=== PATIENT | male | born 1955 | race Caucasian/White ===

== ENCOUNTER 2020-01-22 17:48 | Emergency (ER) | payer MEDICAID ==
[2020-01-22 18:00] VITALS: Ht 170.2 cm
[2020-01-22 20:01] LABS: CHLORIDE SERUM 98 mmol/L (98-107); GFR1 > 60 mL/min; POTASSIUM SERUM 3.6 mmol/L (3.5-5.1); SODIUM SERUM 135 mmol/L (136-145)
[2020-01-22 20:16] LABS: PLATELET COUNT 426 x10^3mcL (130-400); RED CELL DISTRIBUTION WIDTH 21.1 % (11.5-14.5)
[2020-01-22 20:21] LABS: ALKALINE PHOSPHATASE 108 U/L (46-116); ALT/SGPT 13 U/L (16-63); AST/SGOT 26 U/L (15-37); BAND NEUTROPHIL 4 % (0-10); BILIRUBIN TOTAL 0.4 mg/dL (0.20-1.00); CALCIUM 7.9 mg/dL (8.5-10.1); CARBON DIOXIDE 19.7 mmol/L (21-32); CREATININE SERUM 0.7 mg/dL (0.7-1.3); MONOCYTE 6 % (0-7); SEGMENTED NEUTROPHILS 52 % (37-75)
[2020-01-22 20:22] LABS: rbc morphology (normal/abnorm) ABNORMAL (NORMAL)
[2020-01-22 20:23] LABS: PLATELET MORPHOLOGY PLATELETS INCREASED
[2020-01-22 20:24] LABS: ALBUMIN 2.3 g/dL (3.4-5.0)
[2020-01-22 20:27] LABS: GLUCOSE SERUM 45 mg/dL (74-106)
[2020-01-22 23:55] LABS: UA SPECIFIC GRAVITY >=1.030 (1.005-1.035); urine erythrocyte 1+ (NEGATIVE)
[2020-01-23 00:02] LABS: microscopic required? YES
[2020-01-23 01:36] VITALS: BP 101/64
== END 2020-01-23 01:37 | disposition home or self-care (01) ==
LOC: ED 17:48
PROVIDERS: Emergency Medicine
DX: T45.1X5A Adverse effect of antineoplastic and immunosuppressive drugs, initial encounter (principal); D50.9 Iron deficiency anemia, unspecified; Y92.89 Other specified places as the place of occurrence of the external cause
CPT/HCPCS: 82962; 83880; J2405; J2765; J3490; J7040; P9047; Q0092

== ENCOUNTER 2020-01-24 15:39 | Emergency (ER) | payer MEDICAID ==
[~2020-01-24] VITALS: Ht 167.6 cm; Wt 49.9 kg
[2020-01-24 16:12] VITALS: Ht 167.6 cm; Wt 49.9 kg
[2020-01-24 17:13] VITALS: BP 88/56
== END 2020-01-24 17:13 | disposition home or self-care (01) ==
LOC: ED 15:39
DX: R78.81 Bacteremia (principal); Z02.79 Encounter for issue of other medical certificate; Z85.51 Personal history of malignant neoplasm of bladder